=== PATIENT | male | born 1980 | race Caucasian/White ===

== ENCOUNTER → 2018-01-18 15:25 | Outpatient (CLI) | payer BC, SELFPAY ==
--- NOTE | 2018-01-18 16:03 | MRI_ITS ---
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 Height of the vertebral bodies is preserved. Disc spaces are normal with the exception of L5-S1. Bone marrow signal is normal. The conus is located at the T12/L1 level and is morphologically unremarkable. There is normal distribution of the nerve roots of the cauda equina. T12-L1 level is unremarkable. L1-2 level demonstrates a 1.5 mm synovial cyst at the right facet joint and mild bilateral facet arthritic changes. No disc bulging, spinal canal or neuroforaminal stenosis. L2-3 level demonstrates bilateral facet joint arthropathy/hypertrophy and thickening of the ligamentum flavum, right more than left with mild right neuroforaminal narrowing. No significant disc bulging, spinal canal or left neuroforaminal narrowing. L3-4 level demonstrates mild facet arthritic changes and thickening of the ligamentum flavum with minimal right neuroforaminal narrowing. Spinal canal and left neuroforamina are not significantly narrowed. L4-5 level demonstrates bilateral facet joint arthropathy/hypertrophy and mild diffuse disc bulging. There is mild bilateral and minimal spinal canal narrowing. L5-S1 level demonstrates degenerative disc disease and marked endplate degenerative changes. The disc is diffusely bulging with a superimposed broad-based posterior disc protrusion. There is bilateral facet joint arthropathy/hypertrophy. Combination of the findings result in mild spinal canal and moderate bilateral neuroforaminal stenosis. MRI/Spine Lumbar (Routine) IMPRESSION: Mild predominantly facet arthritic changes from L1-2 through L4-5. Degenerative disc disease and endplate degenerative changes at L5-S1 with mild spinal canal and moderate bilateral neuroforaminal stenosis. at 0115 Reported and signed by: Gina Guadarrama MD Electronically Signed: Gina Guadarrama MD at 0:13 EST Tel , Service support ,
== END ==
PROVIDERS: Family Provider Family Medicine; PCP Family Medicine; Visit Provider Nurse Practitioner Family
DX: M51.37 Other intervertebral disc degeneration, lumbosacral region (principal); M54.41 Lumbago with sciatica, right side; M48.07 Spinal stenosis, lumbosacral region
CPT/HCPCS: 72148

== ENCOUNTER → 2020-01-23 | Outpatient (CLI) | payer BC, SELFPAY ==
[2020-01-23 10:33] LABS: D-Dimer Quantitative (DVT/PE) <= 0.27 FEU/ug/m (0.27-0.49)
== END | disposition home or self-care (01) ==
LOC: LABSPEC 09:20
PROVIDERS: PCP Family Medicine; Referring Provider Family Medicine; Visit Provider Family Medicine
DX: R07.9 Chest pain, unspecified (principal)
CPT/HCPCS: 85379

== ENCOUNTER → 2020-08-20 | Outpatient (CLI) | payer BC, SELFPAY | END | disposition home or self-care (01) | LOC: MTDU 17:22 | PROVIDERS: PCP Family Medicine; Referring Provider Registered Nurse; Visit Provider Registered Nurse | DX: Z20.828 Contact with and (suspected) exposure to other viral communicable diseases (principal) | CPT/HCPCS: 87635; C9803; U0003 ==

== ENCOUNTER → 2024-06-27 | Outpatient (CLI) | payer BC, SELFPAY ==
--- NOTE | 2024-06-27 11:08 | NEURO ---
NCS and/or EMG Patient Report Ordering Doctor: Elan Zelaya DATE OF SERVICE: 06/27/24 Fam presents for electrodiagnostic testing of the right upper limb. He reports right sided elbow pain shooting down towards the hand. Electrodiagnostic findings: Right median motor nerve demonstrates normal distal latency, amplitude and conduction velocity. Normal right ulnar motor response, including conduction across the elbow. Normal median and ulnar F?waves. Sensory responses are within normal limits. Needle EMG testing was performed in the right upper limb. All muscles tested showed no evidence of denervation with normal motor unit action potentials. Electrodiagnostic impression: This is a normal electrodiagnostic study of the right upper limb. There is no electrodiagnostic evidence for peripheral neuropathy including carpal tunnel or cubital tunnel syndrome. There is no electrodiagnostic evidence for cervical radiculopathy. Multi Select Codes Neurology Neurology Interp Codes: 67054-06 Musc test done w/n test comp (interp) and 77860-34 Nrv cndj test 7-8 studies (interp)
== END | disposition home or self-care (01) ==
PROVIDERS: PCP Family Medicine; Referring Provider Physician Assistant Surgical; Visit Provider Physician Assistant Surgical
DX: M25.521 Pain in right elbow (principal); R20.2 Paresthesia of skin
CPT/HCPCS: 95886; 95910